=== PATIENT | male | born 1990 | race Caucasian/White ===

== ENCOUNTER 2021-08-29 20:09 | Emergency (ER) | payer SELFPAY ==
[2021-08-29 20:09] VITALS: BP 130/93; PULSE 93; RESP 18; TEMP 36.6; O2SAT 98; BMI 32.5
--- NOTE | 2021-08-29 20:42 | EKG12_ITS ---
Test Reason : LOWER EXTRE Blood Pressure : / mmHG Vent. Rate : 079 BPM Atrial Rate : 079 BPM P-R Int : 132 ms QRS Dur : 090 ms QT Int : 368 ms P-R-T Axes : 045 012 013 degrees QTc Int : 421 ms Normal sinus rhythm Normal ECG Confirmed by DEN ALEJANDRE, MARK ([id number]), digital editor SONI BROWNE ([id number]) on 08/31/2021 1:26:50 PM Referred By: TITI Confirmed By:MARK CRENSHAW MD
--- NOTE | 2021-08-29 20:42 | RAD_ITS ---
INDICATION: chest pain EXAMINATION/TECHNIQUE: X-RAY - XR Chest 1 View COMPARISON: 05/31/2017 FINDINGS: LIFE-SUPPORT AND LINES: 1. None HEART AND VESSELS: The cardiac silhouette, pulmonary vasculature have normal appearance. No evidence of congestive failure. LUNGS AND PLEURAL SPACES: Lungs are clear. No focal infiltrate, consolidation or effusions. No evidence of pneumothorax. No pulmonary mass is noted. MEDIASTINUM AND HILAR REGIONS: No masses adenopathy noted. No areas of calcification. Visualized upper airway is normal in position. BONY ELEMENTS: No acute bony changes noted. RAD/Chest 1 View (Portable) IMPRESSION: 1. No evidence of acute cardiopulmonary process Electronically Signed: Ed Bassett MD at 21:25 EST Tel , Service support ,
--- NOTE | 2021-08-29 20:44 | EDS_ITS ---
HPI History of Present Illness Chief Complaint: Lower Extremity Injury Informant: patient Onset/Context/Timing Onset: Today Activity at onset: sudden Timing: Intermittent Quality: Positive for Tightness Location: Right Chest and Left Chest Current Severity: Gone Maximum Severity: Mild Worsened By: Nothing Relieved By: Nothing Associated Symptoms: Negative for Nausea, Vomiting, Diaphoresis, Dyspnea, Cough, Fever, Lightheadedness, Acid Reflux and Palpitations Narrative Narrative: 31-year-old male no sniffing past medical history other than a prior hernia repair. Initially came in he is concerned he had a blood clot in his leg. He has never had a blood clot. He has no recent travel, surgery or immobilization. There is no family history of blood clots. Also states that he had some chest discomfort. Several sharp and prickly. He states that it while shoveling. Currently symptom-free. He denies any shortness of breath or nausea associated with it. He has no DVT risk factors he is never had a DVT or PE. He has no history of cardiac disease and there is no family history of cardiac disease in people younger than 50. Currently symptom-free. Prior Similar Symptoms: No Recent Illness/Hospitalization: No CVD Risk Factors: Negative for Hypertension, Diabetes, Hypercholesterolemia, Family History 1' </=55 and Smoking PE Risk Factors: Negative for Recent Travel/Surgery, Recent Immobilization, Prior DVT or PE, Cancer and OCP + Smoking + >/=35 TAD Risk Factors: Negative for Marfan's Syndrome and Hypertension [facility] Medical History (Updated 08/29/21 @ 22:[address] Bossman Metcalf MD) Hernia Medical History no medical history no medical history Home Medications NK 08/29/21 [History Last Taken Unknown] Allergy/AdvReac Type Severity Reaction Status Date / Time meloxicam Allergy Hives Verified 05/31/17 20:21 Social History Smoking Status: Former smoker ROS ROS ED ROS Narrative Denies recent illness. Review of Systems ROS Unobtainable: Denies due to encephalopathy Constitutional Constitutional ED: Denies fever(s) Eyes Eyes: Denies none ENT ENT ED: Denies ear pain Cardiovascular Cardiovascular: Reports as per HPI and chest pain; Denies palpitations or racing heartbeat Respiratory/Chest Respiratory/Chest: Denies cough or dyspnea Gastrointestinal Gastrointestinal: Denies abdominal pain, nausea or vomiting Genitourinary Genitourinary ED: Denies dysuria Musculoskeletal Musculoskeletal: Denies myalgias Integumentary Denies rash Neurologic Neurologic: Denies headache(s) Psychiatric Psychiatric: Denies depression Endocrine Endocrinology: Denies polyuria Hematologic/Lymphatic Hematologic/Lymphatic: Denies easy bruising Allergic/Immunologic Allergic/Immunologic ED: Denies urticaria EXAM Physical Exam Narrative Exam Narrative: 29-year-old male no acute distress vital signs stable afebrile. Pulse ox 98% room air no signs hypoxia. HEENT exam normal. Neck nontender no JVD. Lungs clear to auscultation bilaterally. Heart regular rate and rhythm no murmur rate about 90. Chest wall nontender. Abdomen soft nontender. Moving all 4 extremities. Calves nontender without edema or cords. There is a very superficial scratch just above his left knee that he was concerned might be the DVT. I explained to him that was an abrasion and not a blood clot. Neurologically is awake and alert with no focal motor deficit. Const Vital Signs: 08/29/21 20:09 08/29/21 21:33 Temperature 97.8 F Temperature Source Temporal Pulse Rate 93 Respiratory Rate 18 Blood Pressure 130/93 H Blood Pressure Mean 105 Pulse Ox 98 Oxygen Delivery Method Room Air Room Air Positive well nourished and well developed; Negative for obese, cachectic, contractures or unkempt General Appearance ED: well developed and NAD; Negative for unkempt, cachectic, contractures or pallor Nutritional Appearance: Negative for cachectic or obese HEENT Reports moist mucous membranes normocephalic and atraumatic Eyes PERRL and EOMs intact bilaterally Neck no lymphadenopathy, supple and no JVD General: Negative for tenderness Chest Wall inspection of chest normal and palpation of chest normal Resp normal respiratory effort and clear to auscultation bilaterally Effort and Inspection: respiratory distress Auscultation: Negative for rales, rhonchi or wheezes Cardio regular rate, regular rhythm, S1 normal heart sound, S2 normal heart sound and no murmurs Rate: Negative for bradycardia or tachycardic GI normal to inspection, nondistended, normoactive bowel sounds, soft to palpation, non-tender, non-distended and no masses Auscultation: hyperactive bowel sounds Back/Spine no CVA tenderness Extremity normal to inspection General Extremety ED: Negative for edema or tenderness General Extremity: Negative for edema Neuro oriented x3 and CN's II-XII intact bilaterally Sensorium / Orientation: awake, alert, oriented to person, oriented to place and oriented to time Motor Exam: strength 5/5 throughout Psych mental status grossly normal Appearance: Negative for unkempt Mood & Affect: Negative for depressed or tearful Skin no rashes or lesions noted and no wounds General Skin Exam: Negative for jaundice or pallor Heart Score History: Slightly/Non-Suspicious ECG: Normal Age: </= 45 years Risk Factors: No Risk Factors Troponin: </= Normal Limit Score: 0 MDM MDM MDM Narrative Medical decision making narrative: 31-year-old male with very atypical chest pain. Exam is normal. He will undergo cardiac work-up. He has no risk factors for DVT or PE and no physical findings of such. Repeat exam patient is doing well at 10:24 PM. Symptom-free. Exam unchanged. Normal. He and I went over all his test results. He will be discharged home. Outpatient follow-up. Return if worse. Lab Data Attestation: I reviewed the patient's lab results. Lab results narrative: CBC shows a white count 9. Hemoglobin 15. Normal platelets. Electrolytes unremarkable gap at 9 normal BUN and creatinine. 23. Glucose 106. Labs: Laboratory Results - last 24 hr 08/29/21 08/29/21 20:50 20:50 WBC 9.2 RBC 5.21 Hgb 15.6 Hct 45.7 MCV 87.7 MCH 29.9 MCHC 34.1 RDW Std Deviation 39.4 RDW Coeff of Yana 12.2 Plt Count 312 MPV 9.3 Immature Gran % (Auto) 0.500 Neut % (Auto) 67.8 Lymph % (Auto) 20.1 [place] % (Auto) 8.2 Eos % (Auto) 2.6 Baso % (Auto) 0.8 Absolute Neuts (auto) 6.3 Absolute Lymphs (auto) 1.86 Nucleated RBC % 0 Sodium 142 Potassium 3.7 Chloride 106 Carbon Dioxide 27.0 Anion Gap 9 BUN 14 Creatinine 0.86 Estim Creat Clear Calc 95.23 Est GFR (MDRD) Af Amer 131 Est GFR (MDRD) Non-Af 109 BUN/Creatinine Ratio 16.2 Glucose 106 Calcium 9.8 Troponin I High Sens 3 Radiography Chest X-Ray - ED: 1 View, Read by ED Physician, Normal, Heart, Lungs, Mediastinum, Bony Structures and No Acute Disease Diagnostic Testing: Clinical Impression(s) from Imaging Studies Chest X-Ray 08/29/21 20:42 IMPRESSION: 1. No evidence of acute cardiopulmonary process Electronically Signed: Ed Bassett MD at 21:25 EST Tel , Service support , Chest x-ray, single view, portable interpreted by myself and radiologist shows no acute abnormality. Normal cardiac silhouette mediastinum. Normal lung field. No infiltrates. Discharge Plan Triage Chief Complaint: Lower Extremity Injury ED Provider: Bossman Metcalf Dx/Rx/DC Orders Clinical Impression: Chest pain of uncertain etiology Instructions: ED Chest Pain, Uncertain Cause Prescriptions: No Action NK RF: 0 Primary Care Provider: Homero Mcconnell Referrals: Homero Mcconnell MD [Primary Care Provider] - 3-5 Days if not improving Activity Restrictions/Additional Instructions: Follow-up with your primary care physician. They may want to get an outpatient stress test. Return if increasing pain, shortness of breath and feeling worse. All your test today EKG and chest x-ray were all normal. Disposition Disposition: Home, Self Care
[2021-08-29 20:57] LABS: Absolute Lymphocyte Count 1.86 X10^3/uL (0.83-4.51); Absolute Neutrophil Count 6.3 X10^3/uL (2.0-7.7); Basophil# 0.07 X10^3/uL; Basophil% 0.8 % (0-1); Eosinophil# 0.24 X10^3/uL; Eosinophils% 2.6 % (0-5); Hematocrit 45.7 % (40-54); Hemoglobin 15.6 g/dL (13.0-16.5); Lymphocyte # 1.86 X10^3/ul (0.83-4.51); Lymphocyte % 20.1 % (19-41); Mean Corp Hgb Conc 34.1 g/dL (32-36); Mean Corpuscular Hgb 29.9 pg (27.0-32.0); Mean Corpuscular Volume 87.7 fL (80-94); Mean Platelet Vol. 9.3 fl (6.2-12.0); Monocyte# 0.76 X10^3/uL; Monocyte% 8.2 % (0-10); NRBC Flagged by Analyzer 0 % (0-5); Neutrophil # 6.26 X10^3/uL (2.7-7.7); Neutrophil % 67.8 % (47-70); Platelet Count 312 K/mm3 (150-450); RBC Distribution Width CV 12.2 % (11.6-14.6); RBC Distribution Width SD 39.4 fl (35.1-43.9); Red Blood Count 5.21 M/mm3 (4.6-6.2); White Blood Count 9.2 K/mm3 (4.4-11.0)
[2021-08-29 21:17] LABS: Anion Gap 9 (5-15); BUN 14 mg/dL (7-18); BUN/Creat Ratio 16.2 RATIO (10-20); Calcium,Total 9.8 mg/dL (8.5-10.1); Chloride 106 mmol/L (98-107); Creatinine, Serum 0.86 mg/dL (0.70-1.30); EST Glomerular Filtration Rate 109 mL/min (>60); Est Glom Filt Rate - Afr Amer 131 mL/min (>60); Estimated Creatinine Clearance 95.23 ml/min; Glucose 106 mg/dL (74-106); Potassium 3.7 mmol/L (3.5-5.1); Sodium Level 142 mmol/L (136-145); Troponin-I HS 3 pg/mL (3.0-78.0)
[2021-08-29 22:39] VITALS: PULSE 84; RESP 18
== END 2021-08-29 22:40 | disposition home or self-care (01) ==
PROVIDERS: Emergency Provider Emergency Medicine; PCP Family Medicine
DX: R07.9 Chest pain, unspecified (principal); Z87.891 Personal history of nicotine dependence
CPT/HCPCS: 71045; 80048; 84484; 85025; 93005; 99284

== ENCOUNTER 2022-02-12 18:34 | Emergency (ER) | payer SELFPAY ==
[2022-02-12 18:35] VITALS: BP 140/85; PULSE 86; RESP 14; TEMP 35.7; O2SAT 99; BMI 32.4
--- NOTE | 2022-02-12 18:44 | EKG12_ITS ---
Test Reason : CP Blood Pressure : / mmHG Vent. Rate : 083 BPM Atrial Rate : 083 BPM P-R Int : 134 ms QRS Dur : 086 ms QT Int : 360 ms P-R-T Axes : 032 017 007 degrees QTc Int : 423 ms Normal sinus rhythm Normal ECG Confirmed by ALEX ALEJANDRE, MORENO ([id number]), desk editor SONI BROWNE ([id number]) on 02/14/2022 11:08:41 AM Referred By: RU Confirmed By:MORENO JOHNSON MD
--- NOTE | 2022-02-12 18:45 | ED.VIS.CHEST ---
HPI History of Present Illness Chief Complaint: Chest Pain Detail of Chief Complaint: Chest pain that started over a week ago Informant: patient Onset/Context/Timing Quality: Positive for Sharp and Stabbing Narrative Narrative: Presents emergency department complaint of chest pain that started over a week ago. Patient states that he had a syncopal episode 6 days ago where he was standing drinking some water and passed out. Patient was seen in [facility] and no etiology was found. Patient had chest pain since that time. He describes pain that started initially in the left chest and went to the right chest now is more in the center. He describes it as sharp and stabbing and worse with deep breath. He denies recent travel or surgery. Patient states that he had COVID in May 2021 and since that time he has not been quite right. Patient states that at times he will have discoloration where his hands turn purple. Denies any recent illness. Denies any fever. He denies cough. He denies any trauma to his chest. Prior Similar Symptoms: No PFSH PFSH Medical History (Updated 02/12/22 @ 20:[address] Adair Avendaño DO) Hernia Home Medications NK 08/29/21 [History Last Taken Unknown] Allergy/AdvReac Type Severity Reaction Status Date / Time meloxicam Allergy Hives Verified 02/12/22 18:35 Social History Smoking Status: Former smoker ROS ROS ED Review of Systems ROS Unobtainable: other Constitutional Constitutional ED: Reports lethargy; Denies chills, fever(s), sweats or weight loss Eyes Eyes: Denies blurry vision, change in vision or diplopia ENT ENT ED: Denies rhinorrhea or sore throat Cardiovascular Cardiovascular: Reports chest pain; Denies orthopnea or racing heartbeat Respiratory/Chest Respiratory/Chest: Reports dyspnea and dyspnea on exertion; Denies cough, orthopnea or sputum Gastrointestinal Gastrointestinal: Denies abdominal pain, diarrhea, nausea or vomiting Genitourinary Genitourinary ED: Denies dysuria, hematuria or urinary frequency Musculoskeletal Musculoskeletal: Denies arthralgias, back pain, myalgias or neck pain Integumentary Denies abscess, Abrasions or rash Neurologic Neurologic: Denies headache(s) or weakness Psychiatric Psychiatric: Denies anxiety, depression or suicidal thoughts Endocrine Endocrinology: Denies polydipsia, polyphagia or polyuria Hematologic/Lymphatic Hematologic/Lymphatic: Denies easy bleeding, easy bruising or lymphadenopathy Allergic/Immunologic Allergic/Immunologic ED: Denies mouth swelling, tongue swelling or urticaria EXAM Physical Exam Const Vital Signs: 02/12/22 18:35 02/12/22 18:52 02/12/22 18:54 Temperature 96.3 F L Temperature Source Temporal Pulse Rate 86 85 Respiratory Rate 14 18 Respiratory Effort Normal Non-Labored Blood Pressure 140/85 H 129/83 H Blood Pressure Mean 103 98 Pulse Ox 99 98 Oxygen Delivery Method Room Air Room Air Positive well nourished and well developed General Appearance ED: well developed and NAD HEENT Reports TM's clear and moist mucous membranes normocephalic and atraumatic; Negative for trauma or tenderness Tympanic Membrane ED: Yes TM's clear Eyes PERRL and EOMs intact bilaterally General Eye ED: Negative for pale conjunctiva or scleral icterus Neck no lymphadenopathy, supple and no JVD General: Negative for tenderness Chest Wall inspection of chest normal and palpation of chest normal Chest Narrative: Patient has a small sebaceous cyst to the right upper chest wall. It is not cellulitic and no signs of infection. Patient has some mild tenderness palpation over the anterior chest wall that somewhat reproduces pain. Chest: Negative for tenderness Resp normal respiratory effort and clear to auscultation bilaterally Effort and Inspection: Negative for respiratory distress or pain with movement Auscultation: Negative for rhonchi, wheezes or diminished lung sounds Cardio regular rate, regular rhythm, S1 normal heart sound, S2 normal heart sound and no murmurs Peripheral Pulses: pulses 2+ throughout GI normal to inspection, nondistended, normoactive bowel sounds, soft to palpation, non-tender, non-distended and no masses Back/Spine no CVA tenderness and no thoracic nor lumbar tenderness Extremity normal to inspection General Extremety ED: Negative for edema General Extremity: Negative for edema Neuro oriented x3, CN's II-XII intact bilaterally, no sensory deficits noted and gait normal Sensorium / Orientation: awake, alert, oriented to person, oriented to place and oriented to time Motor Exam: strength 5/5 throughout and strength abnormal Psych mental status grossly normal Skin no rashes or lesions noted and no wounds MDM MDM MDM Narrative Medical decision making narrative: IV line established on arrival. Patient had labs that were normal. Each EKG was unremarkable. Patient had a D-dimer that was normal. Chest x-ray was normal. At this point etiology of his pain is unclear. I suspect his chest pain is benign. Patient advised to follow-up with his primary care physician 3 to 5 days. Lab Data Attestation: I reviewed the patient's lab results. Labs: Laboratory Results - last 24 hr 02/12/22 02/12/22 02/12/22 19:00 19:00 19:00 WBC 9.6 RBC 4.73 Hgb 14.3 Hct 41.4 MCV 87.5 MCH 30.2 MCHC 34.5 RDW Std Deviation 39.3 RDW Coeff of Yana 12.1 Plt Count 285 MPV 9.4 Immature Gran % (Auto) 0.300 Neut % (Auto) 67.2 Lymph % (Auto) 20.5 [place] % (Auto) 8.5 Eos % (Auto) 2.9 Baso % (Auto) 0.6 Absolute Neuts (auto) 6.4 Absolute Lymphs (auto) 1.96 Nucleated RBC % 0 D-Dimer Quant (PE/DVT) 0.35 Sodium 140 Potassium 3.5 Chloride 107 Carbon Dioxide 28.0 Anion Gap 5 BUN 12 Creatinine 0.97 Estim Creat Clear Calc 84.43 Est GFR (MDRD) Af Amer 115 Est GFR (MDRD) Non-Af 95 BUN/Creatinine Ratio 12.4 Glucose 95 Calcium 9.3 Troponin I High Sens < 3 L Radiography Chest X-Ray - ED: 1 View Diagnostic Testing: Clinical Impression(s) from Imaging Studies Chest X-Ray 02/12/22 18:48 IMPRESSION: There are no acute findings. Electronically Signed: Jeremías Bowden MD at 19:04 EDT Reading Location ID and State: [facility] / [place] , Service support , 1 view chest x-ray obtained interpreted by myself as no acute disease process. Radiology in agreement. EKG Initial EKG: Attestation: I personally reviewed and interpreted this EKG as follows: Comments: Sinus rhythm with a ventricular rate of 83 bpm with no acute ST segment changes Discharge Plan Triage Chief Complaint: Chest Pain ED Provider: Adair Avendaño Dx/Rx/DC Orders Clinical Impression: Chest pain Instructions: ED Chest Pain, Uncertain Cause Prescriptions: No Action NK RF: 0 Primary Care Provider: Care Physician,No Primary Referrals: Eddie Roa MD [STAFF PHYSICIAN] - 5-7 Days Care Physician,No Primary [Primary Care Provider] - Disposition Disposition: Home, Self Care
--- NOTE | 2022-02-12 18:48 | RAD_ITS ---
STUDY: X-RAY CHEST REASON FOR EXAM: Male, 31 years old. CHEST PAIN chest pain TECHNIQUE: XR Chest 1 View COMPARISON: None FINDINGS: There is no demonstrated pleural abnormality. Normal size heart. Normal mediastinum and evelyn. Normal visualized pulmonary arteries. Normal visualized aortic arch and descending thoracic aorta. Normal visualized thoracic spine. Normal visualized ribs, clavicles, and shoulders. There is no demonstrated abnormality of the visualized soft tissue structures of the upper abdomen. RAD/Chest 1 View (Portable) IMPRESSION: There are no acute findings. Electronically Signed: Jeremías Bowden MD at 19:04 EDT ,
[2022-02-12 18:52] VITALS: BP 129/83; PULSE 85; RESP 18; O2SAT 98
[2022-02-12] MEDS: 0.9% Normal Saline 1,000 ML 150 ML IV (18:54)
[2022-02-12 19:07] LABS: Absolute Lymphocyte Count 1.96 X10^3/uL (0.83-4.51); Absolute Neutrophil Count 6.4 X10^3/uL (2.0-7.7); Basophil# 0.06 X10^3/uL; Basophil% 0.6 % (0-1); Eosinophil# 0.28 X10^3/uL; Eosinophils% 2.9 % (0-5); Hematocrit 41.4 % (40-54); Hemoglobin 14.3 g/dL (13.0-16.5); Lymphocyte # 1.96 X10^3/ul (0.83-4.51); Lymphocyte % 20.5 % (19-41); Mean Corp Hgb Conc 34.5 g/dL (32-36); Mean Corpuscular Hgb 30.2 pg (27.0-32.0); Mean Corpuscular Volume 87.5 fL (80-94); Mean Platelet Vol. 9.4 fl (6.2-12.0); Monocyte# 0.81 X10^3/uL; Monocyte% 8.5 % (0-10); NRBC Flagged by Analyzer 0 % (0-5); Neutrophil # 6.41 X10^3/uL (2.7-7.7); Neutrophil % 67.2 % (47-70); Platelet Count 285 K/mm3 (150-450); RBC Distribution Width CV 12.1 % (11.6-14.6); RBC Distribution Width SD 39.3 fl (35.1-43.9); Red Blood Count 4.73 M/mm3 (4.6-6.2); White Blood Count 9.6 K/mm3 (4.4-11.0)
[2022-02-12 19:25] LABS: Anion Gap 5 (5-15); BUN 12 mg/dL (7-18); BUN/Creat Ratio 12.4 RATIO (10-20); Calcium,Total 9.3 mg/dL (8.5-10.1); Chloride 107 mmol/L (98-107); Creatinine, Serum 0.97 mg/dL (0.70-1.30); EST Glomerular Filtration Rate 95 mL/min (>60); Est Glom Filt Rate - Afr Amer 115 mL/min (>60); Estimated Creatinine Clearance 84.43 ml/min; Glucose 95 mg/dL (74-106); Potassium 3.5 mmol/L (3.5-5.1); Sodium Level 140 mmol/L (136-145); Troponin-I HS (w/2H Reflex) < 3 pg/mL (3.0-78.0)
[2022-02-12 19:59] LABS: D-Dimer Quantitative (DVT/PE) 0.35 FEU/ug/m (0.27-0.49)
[2022-02-12 20:36] VITALS: BP 122/86; PULSE 84; RESP 16; O2SAT 98
[2022-02-12 21:00] LABS: Reflex Troponin-HS? (from REC) Y
== END 2022-02-12 20:41 | disposition home or self-care (01) ==
PROVIDERS: Emergency Provider Emergency Medicine; Visit Provider Emergency Medicine
DX: R07.9 Chest pain, unspecified (principal); Z87.891 Personal history of nicotine dependence; Z86.16 Personal history of COVID-19
CPT/HCPCS: 71045; 80048; 84484; 85025; 85379; 93005; 96360; 96361; 99284; J7030; A4216

== ENCOUNTER 2022-04-04 12:37 | Emergency (ER) | payer SELFPAY ==
[2022-04-04] VITALS (11 sets, daily range): BP systolic 136–163; BP diastolic 87–102; PULSE 78–107; RESP 16–18; TEMP 36.9; O2SAT 96–99; BMI 32.0
--- NOTE | 2022-04-04 13:08 | EKG12_ITS ---
Test Reason : Mental health Blood Pressure : / mmHG Vent. Rate : 098 BPM Atrial Rate : 098 BPM P-R Int : 122 ms QRS Dur : 090 ms QT Int : 332 ms P-R-T Axes : 021 003 006 degrees QTc Int : 423 ms Normal sinus rhythm Normal ECG Confirmed by MORENO JOHNSON MD ([id number]), editor index GARY GORDON ([id number]) on 04/08/2022 11:35:42 AM Referred By: Christi Confirmed By:MORENO JOHNSON MD
--- NOTE | 2022-04-04 13:10 | ED.RN ---
PT PINK SLIPPED PER DR GEORGES. STATES PT DOES NOT REQUIRE A ONE ON ONE SITTER AT THIS TIME BUT CANNOT BE ALLOWED TO LEAVE
--- NOTE | 2022-04-04 13:17 | EX.ED.VIS.PS ---
HPI HPI - Psych History of Present Illness Chief Complaint: Mental Health Informant: patient Narrative Narrative: Patient is a 32-year-old male with history of bipolar disorder presenting with worsening paranoia as well as depression. Patient states he has a strong family history of paranoid schizophrenia both his mother and his maternal grandfather. He states over the past few days he has been more paranoid and feels like someone is putting a hit out on him are going to kill him. He does have a hear voices calling his name. He states he does not feel safe. [place] but does not live with anyone. His father does live in a trailer next to him. Patient states that he filed an [employer] complaints at work about 3 days ago and now thinks that someone is going to try to murder him because of this. He is scared for his life but is also feeling more depressed and has having some suicidal thoughts. He states he does not want anyone else to kill him. He does not have a plan. He is previously been on Depakote but is been off any medications for years. Patient states he kind of feels like hurting himself. Admits to mild headache and some blurry vision but states that he does wear contacts. No other physical complaints at this time. Patient chews tobacco admits to daily alcohol use as well as daily marijuana use. States he drinks a sixpack of tall boy Jenelle lights daily. States he does get a little shaky if he does not have any beer. Denies any history of DTs. [facility] Medical History Hernia Home Medications NK 08/29/21 [History Last Taken Unknown] Allergy/AdvReac Type Severity Reaction Status Date / Time amoxicillin Allergy Hives Verified 04/04/22 12:40 meloxicam Allergy Hives Verified 04/04/22 12:40 Social History Smoking Status: Former smoker ROS ROS ED Constitutional Constitutional ED: Denies chills or fever(s) Eyes Eyes: Reports blurry vision; Denies change in vision or diplopia ENT ENT ED: Denies rhinorrhea or sore throat Cardiovascular Cardiovascular: Denies chest pain Respiratory/Chest Respiratory/Chest: Denies cough Gastrointestinal Gastrointestinal: Denies abdominal pain, nausea or vomiting Musculoskeletal Musculoskeletal: Denies arthralgias Integumentary Denies rash Neurologic Neurologic: Reports headache(s); Denies paresthesias or weakness Psychiatric Psychiatric: Reports anxiety, depression, suicidal thoughts and other Details: Paranoia EXAM Physical Exam Const Vital Signs: 04/04/22 12:38 04/04/22 13:44 04/04/22 14:00 Temperature 98.5 F Temperature Source Temporal Pulse Rate 107 H Respiratory Rate 16 18 18 Blood Pressure 163/102 H Blood Pressure Mean 122 Pulse Ox 99 Oxygen Delivery Method Room Air 04/04/22 15:00 04/04/22 16:00 04/04/22 17:00 Temperature Temperature Source Pulse Rate Respiratory Rate 18 18 16 Blood Pressure Blood Pressure Mean Pulse Ox Oxygen Delivery Method High Flow 04/04/22 18:00 04/04/22 19:00 04/04/22 20:00 Temperature Temperature Source Pulse Rate 86 Respiratory Rate 18 18 18 Blood Pressure 136/92 H Blood Pressure Mean 106 Pulse Ox 96 Oxygen Delivery Method Room Air Room Air 04/04/22 21:00 Temperature Temperature Source Pulse Rate Respiratory Rate 18 Blood Pressure Blood Pressure Mean Pulse Ox Oxygen Delivery Method Positive well nourished and well developed General Appearance ED: well developed and NAD HEENT Reports moist mucous membranes normocephalic and atraumatic Eyes PERRL and EOMs intact bilaterally Neck supple Neck Narrative: No meningeal signs Resp normal respiratory effort and clear to auscultation bilaterally Cardio no murmurs Rate: regular rate Rhythm: regular rhythm GI non-tender and non-distended Extremity normal to inspection General Extremety ED: Negative for edema or tenderness General Extremity: Negative for edema Neuro oriented x3, CN's II-XII intact bilaterally and no sensory deficits noted Motor Exam: strength 5/5 throughout and muscle tone normal throughout Psych cooperative and affect normal Appearance: appropriate Attitude: calm and paranoid Activity / Motor Behavior: Negative for appropriate eye contact Speech: normal speech Mood & Affect: depressed and flat affect Thought Content: hallucination(s) Positive for auditory (Hearing his name) and visual (Seeing shadows) Memory / Cognition: memory grossly intact Insight: fair Skin Lesions: no lesions Rashes: no rashes MDM MDM MDM Narrative Medical decision making narrative: Patient evaluated for new onset of paranoia as well as depression and thoughts of self-harm. Patient is paranoid in the emergency room it is admitting to auditory and visual hallucinations. He is cooperative I do think he would benefit from an inpatient psychiatric evaluation especially as he currently does not have any outpatient support structure is not on any medications. Medical clearance will be obtained. Patient has a pink slip filled out. Patient has a mild leukocytosis but no left shift. This is nonspecific. No IV source of infection. Patient is medically cleared. Do think patient would benefit from inpatient psychiatric care. He is evaluated by crisis. He is signed out pending acceptance to a psychiatric facility. Patient is given a dose of oral Geodon for his paranoia in the emergency room. Lab Data Labs: Laboratory Results - last 24 hr 04/04/22 04/04/22 04/04/22 13:25 13:25 13:25 WBC 13.3 H RBC 5.48 Hgb 16.3 Hct 48.0 MCV 87.6 MCH 29.7 MCHC 34.0 RDW Std Deviation 42.1 RDW Coeff of Yana 13.2 Plt Count 304 MPV 9.5 Immature Gran % (Auto) 0.500 Neut % (Auto) 83.3 H Lymph % (Auto) 8.0 L Hughes % (Auto) 7.2 Eos % (Auto) 0.5 Baso % (Auto) 0.5 Absolute Neuts (auto) 11.1 H Absolute Lymphs (auto) 1.06 Nucleated RBC % 0 Sodium 138 Potassium 3.6 Chloride 105 Carbon Dioxide 28.0 Anion Gap 5 BUN 6 L Creatinine 0.87 Estim Creat Clear Calc 93.27 Est GFR (MDRD) Af Amer 129 Est GFR (MDRD) Non-Af 107 BUN/Creatinine Ratio 6.9 L Glucose 104 Calcium 9.8 Total Bilirubin 0.50 AST 32 ALT 72 H Alkaline Phosphatase 92 Total Protein 8.6 H Albumin 4.4 Globulin 4.2 Albumin/Globulin Ratio 1.0 Urine Color Urine Clarity Urine pH Ur Specific [place] Urine Protein Urine Glucose (UA) Urine Ketones Urine Occult Blood Urine Nitrite Urine Bilirubin Urine Urobilinogen Ur Leukocyte Esterase Urine RBC Urine WBC Ur Squamous Epith Cells Urine Bacteria Urine Mucus Urine Opiates Screen Urine Methadone Screen Ur Barbiturates Screen Ur Phencyclidine Scrn Ur Amphetamines Screen MDMA (Ecstasy) Screen U Benzodiazepines Scrn Urine Cocaine Screen U Cannabinoids Screen Ur Drug Screen Comment Ethyl Alcohol 8.0 04/04/22 04/04/22 14:11 14:11 WBC RBC Hgb Hct MCV MCH MCHC RDW Std Deviation RDW Coeff of Yana Plt Count MPV Immature Gran % (Auto) Neut % (Auto) Lymph % (Auto) Hughes % (Auto) Eos % (Auto) Baso % (Auto) Absolute Neuts (auto) Absolute Lymphs (auto) Nucleated RBC % Sodium Potassium Chloride Carbon Dioxide Anion Gap BUN Creatinine Estim Creat Clear Calc Est GFR (MDRD) Af Amer Est GFR (MDRD) Non-Af BUN/Creatinine Ratio Glucose Calcium Total Bilirubin AST ALT Alkaline Phosphatase Total Protein Albumin Globulin Albumin/Globulin Ratio Urine Color Yellow Urine Clarity Clear Urine pH 6.0 Ur Specific [place] 1.010 Urine Protein Negative Urine Glucose (UA) Normal Urine Ketones Negative Urine Occult Blood Negative Urine Nitrite Negative Urine Bilirubin Negative Urine Urobilinogen Normal Ur Leukocyte Esterase Negative Urine RBC 0 SEEN Urine WBC 0 SEEN Ur Squamous Epith Cells 0 SEEN Urine Bacteria 0 SEEN Urine Mucus 0 SEEN Urine Opiates Screen NEGATIVE Urine Methadone Screen NEGATIVE Ur Barbiturates Screen NEGATIVE Ur Phencyclidine Scrn NEGATIVE Ur Amphetamines Screen NEGATIVE MDMA (Ecstasy) Screen NEGATIVE U Benzodiazepines Scrn NEGATIVE Urine Cocaine Screen NEGATIVE U Cannabinoids Screen POSITIVE H Ur Drug Screen Comment Ethyl Alcohol Rhythm Strip Rhythm Strip: Sinus Rhythm Rate: 98 Ectopy: None EKG Initial EKG: Attestation: I personally reviewed and interpreted this EKG as follows: Interpretation: Sinus Rhythm Comments: Normal sinus rhythm at a rate of 98 Normal axis Normal intervals Normal ST segments Discharge Plan Triage Chief Complaint: Mental Health ED Provider: Gina Barraza Dx/Rx/DC Orders Clinical Impression: Acute paranoia, Depression Prescriptions: No Action NK Primary Care Provider: Care Physician,No Primary Referrals: Care Physician,No Primary [Primary Care Provider] - Disposition Disposition: Psychiatric Hospital or Unit
--- NOTE | 2022-04-04 13:24 | CM.ED ---
Addendum entered by Sharon Jung 04/04/22 13:37: JAZMIN faxed available clinicals to Crisis. SW updated religious studies professor that pt is self-pay, Crisis to complete evaluation. Original Note: Social Work Note SW reviewed chart. Pt is self-pay and requesting to go to [place]. Pt will need to be evaluated by Crisis as pt is self-pay. JAZMIN placed a call to Madalyn at [facility] and provided referral. Madalyn states to fax over clinicals. Clinicals to be faxed once available. Sharon Jung TECHNICIAN, BUSINESS TRANSFORMATION CONSULTANT
[2022-04-04 13:42] LABS: Absolute Lymphocyte Count 1.06 X10^3/uL (0.83-4.51); Absolute Neutrophil Count 11.1 X10^3/uL (2.0-7.7); Basophil# 0.07 X10^3/uL; Basophil% 0.5 % (0-1); Eosinophil# 0.06 X10^3/uL; Eosinophils% 0.5 % (0-5); Hemoglobin 16.3 g/dL (13.0-16.5); Lymphocyte # 1.06 X10^3/ul (0.83-4.51); Mean Corpuscular Hgb 29.7 pg (27.0-32.0); Mean Corpuscular Volume 87.6 fL (80-94); Mean Platelet Vol. 9.5 fl (6.2-12.0); Monocyte# 0.96 X10^3/uL; Monocyte% 7.2 % (0-10); NRBC Flagged by Analyzer 0 % (0-5); Neutrophil % 83.3 % (47-70); Platelet Count 304 K/mm3 (150-450); RBC Distribution Width CV 13.2 % (11.6-14.6); RBC Distribution Width SD 42.1 fl (35.1-43.9); Red Blood Count 5.48 M/mm3 (4.6-6.2); White Blood Count 13.3 K/mm3 (4.4-11.0)
[2022-04-04 13:58] LABS: AST(SGOT) 32 U/L (15-37); Alanine Aminotransfer ALT/SGPT 72 U/L (16-61); Albumin, Serum 4.4 g/dL (3.2-5.0); Alkaline Phosphatase 92 U/L (45-117); Anion Gap 5 (5-15); BUN 6 mg/dL (7-18); BUN/Creat Ratio 6.9 RATIO (10-20); Calcium,Total 9.8 mg/dL (8.5-10.1); Chloride 105 mmol/L (98-107); Creatinine, Serum 0.87 mg/dL (0.70-1.30); EST Glomerular Filtration Rate 107 mL/min (>60); Est Glom Filt Rate - Afr Amer 129 mL/min (>60); Estimated Creatinine Clearance 93.27 ml/min; Globulin 4.2 g/dL (2.2-4.2); Glucose 104 mg/dL (74-106); Potassium 3.6 mmol/L (3.5-5.1); Protein, Total 8.6 g/dL (6.4-8.2); Sodium Level 138 mmol/L (136-145)
[2022-04-04 14:16] LABS: Bacteria 0 SEEN /hpf (None Seen); Mucous, Urine 0 SEEN /hpf (<or=2+); Red Blood Cells-Urine 0 SEEN /hpf (0-5); Squamous Epithelial Cells - UA 0 SEEN /hpf (0-5); White Blood Cells 0 SEEN /hpf (0-5)
[2022-04-04 14:21] LABS: Color, Urine Yellow (Yellow); Glucose, Dipstick Normal (Normal); Ketone-Dipstick Negative (Negative); Leukocyte Esterase-Dipstick Negative /ul (Negative); Nitrite-Dipstick Negative (Negative); Occult Blood-Urine Negative /ul (Negative); Protein-Dipstick Negative (Negative); Urine Bilirubin Dipstick Negative (Negative); Urine Clarity Clear (Clear); Urine Urobilinogen Normal (Normal)
[2022-04-04 14:29] LABS: Amphetamine Urine VISTA NEGATIVE (<1000 ng/mL); Barbiturate Urine VISTA NEGATIVE (< 200 ng/mL); Benzodiazepine Urine VISTA NEGATIVE (< 200 ng/mL); Cocaine Urine VISTA NEGATIVE (< 300 ng/mL); Ecstacy Urine VISTA NEGATIVE (< 500 ng/mL); Methadone Urine VISTA NEGATIVE (< 300 ng/mL); PCP Urine VISTA NEGATIVE (< 25 ng/mL); THC Urine VISTA POSITIVE (< 50 ng/mL); Vista UDS pH Range 6
--- NOTE | 2022-04-04 15:04 | NURSING ---
FAXED LABS, DR LOGAN EPPS AND ECHART TO [facility]
[2022-04-04] MEDS: Ziprasidone HCl 20 MG Capsule PO (18:03)
[2022-04-05] VITALS: RESP 16
[2022-04-05 01:00] VITALS: RESP 16
[2022-04-05 02:00] VITALS: RESP 16
[2022-04-05 04:00] VITALS: BP 141/78; PULSE 73; RESP 16; O2SAT 99
[2022-04-05 05:00] VITALS: RESP 16
--- NOTE | 2022-04-05 05:54 | ED.RN ---
REPORT CALLED TO MARGO AT [facility]
[2022-04-05 06:00] VITALS: RESP 16
== END 2022-04-05 08:26 ==
PROVIDERS: Emergency Provider Emergency Medicine; Visit Provider Emergency Medicine
DX: F22 Delusional disorders (principal); R45.851 Suicidal ideations; F17.220 Nicotine dependence, chewing tobacco, uncomplicated; F32.A Depression, unspecified; F12.90 Cannabis use, unspecified, uncomplicated; R51.9 Headache, unspecified
CPT/HCPCS: 80053; 80307; 81001; 82077; 85025; 87811; 93005; 99285

== ENCOUNTER 2023-01-06 14:15 | Emergency (ER) | payer SELFPAY ==
[2023-01-06 14:15] VITALS: BP 144/91; PULSE 94; RESP 14; TEMP 36.1; O2SAT 100; BMI 31.3
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
[2023-01-06] MEDS: Diphth,Pertuss(Acell),Tet Vac 0.5 ML Vial IM (14:35)
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
--- NOTE | 2023-01-06 14:45 | RAD_ITS ---
INDICATION: injury EXAMINATION/TECHNIQUE: X-RAY - RIGHT XR Elbow Min 3 Views 3 VIEWS COMPARISON: None. FINDINGS: SOFT TISSUES: No soft tissue swelling or gas. No radiopaque foreign body. BONES/JOINTS: No acute fracture. Joint spaces anatomically aligned. RAD/Elbow min 3 Views IMPRESSION: No acute bony injury. Electronically Signed: Gopi Reyna MD at 15:32 EDT ,
[2023-01-06] MEDS: Ibuprofen 600 MG Tablet PO (15:44)
== END 2023-01-06 15:47 | disposition home or self-care (01) ==
PROVIDERS: Emergency Provider Emergency Medicine; Visit Provider Emergency Medicine
DX: S16.1XXA Strain of muscle, fascia and tendon at neck level, initial encounter (principal); Z87.891 Personal history of nicotine dependence; V86.56XA Driver of dirt bike or motor/cross bike injured in nontraffic accident, initial encounter; Y92.410 Unspecified street and highway as the place of occurrence of the external cause; Z23 Encounter for immunization; S09.8XXA Other specified injuries of head, initial encounter; S40.211A Abrasion of right shoulder, initial encounter; S50.811A Abrasion of right forearm, initial encounter; S80.211A Abrasion, right knee, initial encounter; S43.51XA Sprain of right acromioclavicular joint, initial encounter
CPT/HCPCS: 70450; 72125; 73030; 73080; 90471; 90715; 99283